=== PATIENT | male | born 1975 | race Caucasian/White ===

== ENCOUNTER 2021-12-17 18:34 | Emergency (ER) | payer OTHER, SELFPAY ==
[2021-12-17 18:35] VITALS: BP 141/88; PULSE 92; RESP 16; TEMP 37; O2SAT 97; BMI 32.8
--- NOTE | 2021-12-17 19:34 | ED.VIS.LOWEX ---
HPI History of Present Illness Chief Complaint: Lower Extremity Injury Informant: patient Occured/Mechanism Mechanism/Context: Yes injury Onset/Context/Timing Onset: Yesterday Context: Sudden Onset Timing: Continuous Quality of Pain: Sharp Current Severity: Moderate Maximum Severity: Moderate Associated Symptoms Associated Symptoms: Negative for Parasthesia, Weakness and Loss of Funtion Narrative Narrative: This 46-year-old male no seen past medical history. Does complain last night he was keeping dogs from fighting and when he went to break them up he felt some pull in his right lower buttock hamstring. He has had pain since then. No prior history. No fall. No other trauma. Prior similar symptoms: No Recent Illness/Hospitalization: No PFSH PFSH Medical History no medical history no medical history Home Medications ondansetron 4 mg PO Q8H PRN PRN #10 tab 08/10/15 [Rx Last Taken Unknown] Allergy/AdvReac Type Severity Reaction Status Date / Time codeine AdvReac Nausea Verified 12/17/21 18:35 Social History Smoking Status: Current every day smoker ROS ROS ED ROS Narrative Denies recent illness. Review of Systems ROS Unobtainable: Denies due to encephalopathy Constitutional Constitutional ED: Denies fever(s) Eyes Eyes: Denies change in vision ENT ENT ED: Denies ear pain Cardiovascular Cardiovascular: Denies chest pain Respiratory/Chest Respiratory/Chest: Denies dyspnea Gastrointestinal Gastrointestinal: Denies abdominal pain Genitourinary Genitourinary ED: Denies dysuria Musculoskeletal Musculoskeletal: Denies myalgias Integumentary Denies rash Neurologic Neurologic: Denies headache(s) Psychiatric Psychiatric: Denies depression Endocrine Endocrinology: Denies polyuria Hematologic/Lymphatic Hematologic/Lymphatic: Denies easy bruising Allergic/Immunologic Allergic/Immunologic ED: Denies urticaria EXAM Physical Exam Narrative Exam Narrative: -year-old male no acute distress. Vital signs stable afebrile. Sitting in chair. H EENT exam unremarkable. Neck nontender. Lungs clear to auscultation. Heart regular rhythm no murmur. Abdomen soft and nontender. Moving all 4 extremities. Calves nontender no edema no cords. Full range of motion both upper extremities. Normal strength. Back nontender. Right hamstring proximally just past the right gluteus muscle its painful to palpation. Consistent with a right hamstring strain. There is no obvious deficit. He has full flexion-extension of his knee ankle and hip. There is no bony deformity. No bony tenderness. No bruising. No swelling. No edema. Right leg is neurovascularly intact. Const Vital Signs: 12/17/21 18:35 Temperature 98.6 F Temperature Source Temporal Pulse Rate 92 Respiratory Rate 16 Blood Pressure 141/88 H Blood Pressure Mean 105 Pulse Ox 97 Oxygen Delivery Method Room Air Positive well nourished and well developed; Negative for cachectic, contractures or unkempt General Appearance ED: well developed and NAD; Negative for unkempt, cachectic or contractures Nutritional Appearance: Negative for cachectic HEENT Reports moist mucous membranes normocephalic and atraumatic Eyes PERRL Neck full ROM and supple Thyroid: Negative for tender Chest Wall inspection of chest normal and palpation of chest normal Resp normal respiratory effort, no retractions and clear to auscultation bilaterally Auscultation: Negative for rales, rhonchi or wheezes Cardio regular rate, regular rhythm, S1 normal heart sound, S2 normal heart sound and no murmurs GI non-tender, non-distended and no masses Auscultation: normoactive bowel sounds Palpation: soft; Negative for tender, guarding or rebound tenderness present Back/Spine no CVA tenderness General Back: Negative for CVA tenderness Cervical Spine: Negative for cervical spine tenderness Thoracic Spine / Upper Back: Negative for thoracic spinal tenderness Lumbar Spine / Lower Back: Negative for lumbar spinal tenderness Extremity normal to inspection and full ROM Extremity Narrative: Except right hamstring tenderness. No deficit. Normal range of motion. Normal motor strength and sensation. No edema. No swelling. General Extremety ED: Negative for cyanosis or edema General Extremity: Negative for cyanosis or edema Neuro oriented x3 and moves all extremities Sensorium / Orientation: alert, oriented to person, oriented to place and oriented to time; Negative for orientation impaired, confused, lethargic or stuporous Motor Exam: strength 5/5 throughout Psych mental status grossly normal Appearance: Negative for unkempt Skin no wounds Lesions: no lesions Rashes: no rashes Trauma: Negative for abrasion or laceration MDM MDM MDM Narrative Medical decision making narrative: 46-year-old male with a right hamstring strain. Ice and anti-inflammatories. He did not want anything else for pain. He will be written for several days off work. Discharge Plan Triage Chief Complaint: Lower Extremity Injury ED Provider: Cornelio Cohn Dx/Rx/DC Orders Clinical Impression: Right hamstring muscle strain Instructions: ED Muscle Strain, Extremity Prescriptions: No Action ondansetron 4 MG tablet 4 mg PO Q8H PRN PRN (Reason: Nausea) Qty: 10 RF: 0 Primary Care Provider: NOT,DEFINED Referrals: Ubaldo Hanks MD [STAFF PHYSICIAN] - 1 Week if not improving NOT,DEFINED [Primary Care Provider] - Activity Restrictions/Additional Instructions: Ice to the right hamstring. 2030 minutes 4-5 times a day. Motrin or Aleve for pain and inflammation. Follow-up with your doctor if not improving. Disposition Disposition: Home, Self Care
[2021-12-17 19:46] VITALS: RESP 16
== END 2021-12-17 19:47 | disposition home or self-care (01) ==
LOC: ED 19:44
PROVIDERS: Emergency Provider Emergency Medicine; Visit Provider Emergency Medicine
DX: S76.311A Strain of muscle, fascia and tendon of the posterior muscle group at thigh level, right thigh, initial encounter (principal); F17.200 Nicotine dependence, unspecified, uncomplicated; X58.XXXA Exposure to other specified factors, initial encounter
CPT/HCPCS: 99282

== ENCOUNTER 2022-05-15 08:08 | Emergency (ER) | payer OTHER, SELFPAY ==
[2022-05-15 08:09] VITALS: BP 147/84; PULSE 86; RESP 14; TEMP 36.2; O2SAT 100; BMI 32.3
--- NOTE | 2022-05-15 08:53 | EX.ED.DYSGE1 ---
HPI History of Present Illness Chief Complaint: Numb/Ting Informant: patient Onset/Context/Timing Onset: Days (5-6) Context: Gradual Onset Timing: Continuous and Waxes and wanes Quality: Numbness like Novocain Location: Right chest Worsened by: Coughing sometimes Relieved by: Nothing Narrative Narrative: Patient presents with numbness to the right side of his chest that has been constant for the past 5 to 6 days. Patient states that waxes and wanes. Patient states it is always there however. Patient states it feels like Novocain in the right side of his chest. Patient states that sometimes it is worse with coughing. Patient states nothing makes it better. Patient denies any pain. Patient denies any nausea or vomiting. Patient denies any diaphoresis. Patient denies any shortness of breath. PFSH PFSH Medical History no medical history no medical history Home Medications ondansetron 4 mg disintegrating tablet 4 mg PO Q8H PRN PRN Nausea #10 tabs 08/10/15 [Rx Last Taken Unknown] prednisone 20 mg tablet 60 mg PO DAILY #15 TABLETS 05/15/22 [Rx Last Taken Unknown] Allergy/AdvReac Type Severity Reaction Status Date / Time codeine AdvReac Nausea Verified 05/15/22 08:09 Surgical History Hx of appendectomy Social History Smoking Status: Current every day smoker tobacco type: cigarettes ROS ROS ED Constitutional Constitutional ED: Denies chills or fever(s) Eyes Eyes: Denies blurry vision or change in vision ENT ENT ED: Denies rhinorrhea or sore throat Cardiovascular Cardiovascular: Denies chest pain or palpitations Respiratory/Chest Respiratory/Chest: Reports cough; Denies dyspnea Gastrointestinal Gastrointestinal: Denies nausea or vomiting Genitourinary Genitourinary ED: Denies dysuria or hematuria Musculoskeletal Musculoskeletal: Reports neck pain; Denies back pain Integumentary Denies abscess or rash Neurologic Neurologic: Reports paresthesias; Denies headache(s) or weakness Allergic/Immunologic Allergic/Immunologic ED: Denies mouth swelling or urticaria EXAM Physical Exam Const Vital Signs: 05/15/22 08:09 05/15/22 09:15 Temperature 97.2 F L Temperature Source Temporal Pulse Rate 86 68 Respiratory Rate 14 14 Blood Pressure 147/84 H Blood Pressure Mean 105 Pulse Ox 100 99 Oxygen Delivery Method Room Air Room Air Positive well nourished and well developed General Appearance ED: well developed and NAD HEENT Reports moist mucous membranes Neck supple and no JVD Resp normal respiratory effort and clear to auscultation bilaterally Cardio regular rate and regular rhythm GI normal to inspection, nondistended, normoactive bowel sounds and non-tender Palpation: soft Extremity General Extremety ED: Negative for edema or tenderness General Extremity: Negative for edema Neuro oriented x3 and CN's II-XII intact bilaterally Neuro Narrative: There is decreased sensation to light touch on the right chest and the T3-T8 areas starting along the medial scapular border and radiating to the midline. There are no tissue texture changes noted. Sensorium / Orientation: alert Motor Exam: strength 5/5 throughout Skin General Skin Exam: elasticity normal MDM MDM MDM Narrative Medical decision making narrative: EKG was obtained. On my interpretation, it showed a normal sinus rhythm with a rate of 77. [place] interval, QRS interval, and QTc intervals were all normal. Jackson was normal. There are no acute ST or T wave changes. PA and lateral chest x-ray was obtained. There are 2 views. On my interpretation, lung donald are clear. There is normal cardiac silhouette. Bony thorax is normal. There is no acute process noted. Radiologist also interpreted the x-ray and agrees. CBC was within normal limits. Basic metabolic profile was within normal limits. High-sensitivity troponin was normal. Patient was advised of his findings. Patient was advised to there is no obvious mass pushing on his nerves that we could see on the x-ray. Patient was advised that it could be something in the soft tissues that could be causing a neuropathy. Patient was instructed to follow-up with his primary care physician in 5 to 7 days. Patient was given a prescription for a short course of prednisone. Patient understood and was agreeable with the plan. All questions were answered. Lab Data Attestation: I reviewed the patient's lab results. Labs: Laboratory Results - last 24 hr 05/15/22 05/15/22 09:17 09:17 WBC 7.5 RBC 5.00 Hgb 15.3 Hct 47.1 MCV 94.2 H MCH 30.6 MCHC 32.5 RDW Std Deviation 43.7 RDW Coeff of Carri 12.6 Plt Count 280 MPV 10.6 Immature Gran % (Auto) 0.500 Neut % (Auto) 70.2 H Lymph % (Auto) 21.0 [place] % (Auto) 7.1 Eos % (Auto) 0.5 Baso % (Auto) 0.7 Absolute Neuts (auto) 5.3 Absolute Lymphs (auto) 1.58 Nucleated RBC % 0 Sodium 139 Potassium 4.3 Chloride 106 Carbon Dioxide 28.0 Anion Gap 5 BUN 18 Creatinine 0.92 Estim Creat Clear Calc 104.70 Est GFR (MDRD) Af Amer 113 Est GFR (MDRD) Non-Af 94 BUN/Creatinine Ratio 19.5 Glucose 100 Calcium 9.6 Troponin I High Sens < 3 L Radiography Chest X-Ray - ED: 2 View, Read by ED Physician, Read by Radiologist, Normal and No Acute Disease Diagnostic Testing: Clinical Impression(s) from Imaging Studies Chest X-Ray 05/15/22 09:20 IMPRESSION: Normal x-ray examination of the chest. Electronically Signed: Mayito Gallegos MD at 9:49 EDT Reading Location ID and State: [facility] / [place] , Service support , EKG Initial EKG: Attestation: I personally reviewed and interpreted this EKG as follows: Interpretation: Sinus Rhythm (77) and No Acute Injury Pattern Prior EKG tracings: not available for review Prior: No Prior Discharge Plan Triage Chief Complaint: Numb/Ting ED Provider: Floyd Corcoran Dx/Rx/DC Orders Clinical Impression: Paresthesias Instructions: ED Paraesthesias Prescriptions: New prednisone 20 mg tablet 60 mg PO DAILY Qty: 15 0RF No Action ondansetron 4 MG tablet 4 mg PO Q8H PRN PRN (Reason: Nausea) Qty: 10 0RF Stand Alone Forms: ED Work / School Excuse Primary Care Provider: Chaya Milian NP Referrals: Care Physician,No Primary [Non-Staff] - Chaya Milian NP, [employer] [Primary Care Provider] - 5-7 Days Activity Restrictions/Additional Instructions: Call your primary care physician's office and tell them that you were seen in the emergency department to see if you can follow-up sooner than August. Disposition Disposition: Home, Self Care
--- NOTE | 2022-05-15 08:58 | EKG12_ITS ---
Test Reason : NUMB\TING Blood Pressure : / mmHG Vent. Rate : 077 BPM Atrial Rate : 077 BPM P-R Int : 130 ms QRS Dur : 096 ms QT Int : 376 ms P-R-T Axes : 052 061 044 degrees QTc Int : 425 ms Normal sinus rhythm with sinus arrhythmia Normal ECG Confirmed by JEM NAVARRETE, ANDREW ([id number]), medical editor RADHA MOLINA ([id number]) on 05/16/2022 2:03:50 P M Referred By: RAFFY Confirmed By:SHREYA PARISH MD
[2022-05-15 09:15] VITALS: PULSE 68; RESP 14; O2SAT 99
--- NOTE | 2022-05-15 09:20 | RAD_ITS ---
STUDY: X-RAY CHEST REASON FOR EXAM: Male, 46 years old. Chest discomfort TECHNIQUE: PA and lateral views of the chest. COMPARISON: None. FINDINGS: EKG electrodes are seen. The lungs are clear and expanded. There is no demonstrated pleural abnormality. Normal size heart. Normal mediastinum and cher. Normal visualized pulmonary arteries. Normal visualized aortic arch and descending thoracic aorta. Normal visualized thoracic spine. Normal visualized ribs, clavicles, and shoulders. There is no demonstrated abnormality of the visualized soft tissue structures of the upper abdomen. RAD/Chest PA and Lateral IMPRESSION: Normal x-ray examination of the chest. Electronically Signed: Mayito Gallegos MD at 9:49 EDT ,
[2022-05-15 09:27] LABS: Absolute Lymphocyte Count 1.58 X10^3/uL (0.83-4.51); Absolute Neutrophil Count 5.3 X10^3/uL (2.0-7.7); Basophil# 0.05 X10^3/uL; Basophil% 0.7 % (0-1); Eosinophil# 0.04 X10^3/uL; Eosinophils% 0.5 % (0-5); Hematocrit 47.1 % (40-54); Hemoglobin 15.3 g/dL (13.0-16.5); Lymphocyte # 1.58 X10^3/ul (0.83-4.51); Mean Corp Hgb Conc 32.5 g/dL (32-36); Mean Corpuscular Hgb 30.6 pg (27.0-32.0); Mean Corpuscular Volume 94.2 fL (80-94); Mean Platelet Vol. 10.6 fl (6.2-12.0); Monocyte# 0.53 X10^3/uL; Monocyte% 7.1 % (0-10); NRBC Flagged by Analyzer 0 % (0-5); Neutrophil # 5.27 X10^3/uL (2.7-7.7); Neutrophil % 70.2 % (47-70); Platelet Count 280 K/mm3 (150-450); RBC Distribution Width CV 12.6 % (11.6-14.6); RBC Distribution Width SD 43.7 fl (35.1-43.9); White Blood Count 7.5 K/mm3 (4.4-11.0)
[2022-05-15 09:44] LABS: Anion Gap 5 (5-15); BUN 18 mg/dL (7-18); BUN/Creat Ratio 19.5 RATIO (10-20); Calcium,Total 9.6 mg/dL (8.5-10.1); Chloride 106 mmol/L (98-107); Creatinine, Serum 0.92 mg/dL (0.70-1.30); EST Glomerular Filtration Rate 94 mL/min (>60); Est Glom Filt Rate - Afr Amer 113 mL/min (>60); Glucose 100 mg/dL (74-106); Potassium 4.3 mmol/L (3.5-5.1); Sodium Level 139 mmol/L (136-145); Troponin-I HS < 3 pg/mL (3.0-78.0)
[2022-05-15 10:22] VITALS: PULSE 68; RESP 16; O2SAT 98
== END 2022-05-15 10:22 | disposition home or self-care (01) ==
PROVIDERS: Emergency Provider Emergency Medicine; PCP Clinical Nurse Specialist; Visit Provider Emergency Medicine
DX: R20.2 Paresthesia of skin (principal); M54.2 Cervicalgia; F17.210 Nicotine dependence, cigarettes, uncomplicated; Z79.52 Long term (current) use of systemic steroids
CPT/HCPCS: 71046; 80048; 84484; 85025; 93005; 99285; A4216